=== PATIENT | female | born 1940 | race Caucasian/White ===

== ENCOUNTER → 2024-08-17 | Outpatient (CLI) | payer MEDICARE, BC, SELFPAY ==
--- NOTE | 2024-08-17 | XR_ITS ---
Examination: Hand, left 3 views Technique: Hand AP, oblique, lateral 3 views Date and time of exam: August 17, 2024 1312 hours INDICATIONS: Patient fell August 01, 2024 with injury to the hand, hand pain FINDINGS: Acute impacted angulated fracture distal fifth metacarpal Severe osteopenia Advanced osteoarthritis first carpometacarpal joint IMPRESSION: Acute impacted angulated fracture distal fifth metacarpal
== END | disposition home or self-care (01) ==
PROVIDERS: PCP Internal Medicine; Referring Provider Internal Medicine; Visit Provider Internal Medicine
DX: S62.397A Other fracture of fifth metacarpal bone, left hand, initial encounter for closed fracture (principal); W19.XXXA Unspecified fall, initial encounter
CPT/HCPCS: 73130

== ENCOUNTER 2024-12-20 20:03 | Emergency (ER) | payer MEDICARE, BC, SELFPAY ==
[2024-12-20 20:05] VITALS: BMI 24.7
--- NOTE | 2024-12-20 20:08 | XR_ITS ---
Examination: Shoulder,right, 3 views Technique: Shoulder AP internal rotation, AP external rotation, Y view shoulder, 3 views Exam date and time :December 20, 2024, 2029 hours INDICATIONS: Patient fell today with injured the shoulder, shoulder pain. FINDINGS: No shoulder fracture or dislocation Ossified joint body overlies the scapula No significant separation IMPRESSION: No shoulder fracture or dislocation
[2024-12-20 20:55] VITALS: BP 179/84; PULSE 72; RESP 18; TEMP 36.9; O2SAT 95
--- NOTE | 2024-12-20 21:15 | PD.EDFALL ---
ED Fall Injury RME/HPI General Chief Complaint: Fall Stated Complaint: FELL, RIGHT SHOULDER INJURY Time Seen by Provider: 12/20/24 20:55 Arrival date/time: 12/20/24 20:03 RME / HPI RME / HPI Narrative: 84-year-old female presents to the ED with a complaint of right shoulder pain and multiple abrasions to her right upper extremity and right lower extremity secondary to a ground-level fall. Patient states she was working in her garden when she tripped and fell landing in a single palm bluish. The palm caused multiple puncture wounds and abrasions to her right upper extremity and right lower extremity. She denies striking her head or having any loss of consciousness. She denies any neck or back pain. She denies landing on her right shoulder, instead stating she landed on her buttocks. She denies any numbness or tingling to her extremities. Her last tetanus was in January 2022. Related Data Home Medications ?Medication ?Instructions ?Recorded ?Confirmed aspirin 81 mg chewable tablet 81 mg PO QDAY 08/02/19 01/27/22 atorvastatin 10 mg tablet 10 mg PO MWF 08/02/19 01/27/22 cholecalciferol (vitamin D3) 25 1,000 unit PO BID 08/02/19 01/27/22 mcg (1,000 unit) tablet (Vitamin D3) omeprazole 20 mg tablet,delayed 20 mg PO QDAY 08/02/19 01/27/22 release paroxetine HCl 20 mg tablet 20 mg PO QDAY 08/02/19 01/27/22 raloxifene 60 mg tablet 60 mg PO QDAY 08/02/19 01/27/22 Allergies Allergy/AdvReac Type Severity Reaction Status Date / Time levofloxacin Allergy Severe pain Verified 09/26/20 11:23 Review of Systems Review of Systems Systems Reviewed: All systems reviewed, normal except as documented Past Medical History Past Medical History NEUROLOGIC: Negative Neurological Disorders or Seizures CARDIAC: Positive Cardiac Disorders and Hypercholesterolemia; Negative Congestive Heart Failure RESPIRATORY: Negative Chronic Obstructive Pulmonary Disease (COPD) GASTROINTESTINAL: Positive Gastrointestinal Disorders and Gastroesophageal Reflux Disease GENITOURINARY: Negative Genitourinary Disorders or Renal Disease REPRODUCTIVE: Negative Previous Pregnancies MUSCULOSKELETAL: Positive Musculoskeletal Disorders and Osteoporosis ENDOCRINE: Negative Endocrine Disorders, Diabetes Mellitus Type 1 or Diabetes Mellitus Type 2 HEMATOLOGIC: Negative Blood Disorders PSYCHO/SOCIAL: Negative Depression or Anxiety OTHER HISTORY: Positive Anesthesia Reactions, Chicken Pox, Measles and Mumps; Negative Blood Transfusions or Cancer Family History FAMILY HISTORY: Positive Family Cancer (Father had lung cancer); Negative Family Psychiatric Problems, Family Respiratory Disorders, Family Cardiac Disorders or Family Gastrointestinal Problems Surgical History SURGICAL: Positive Joint Replacement, Open Reduction Internal Fixation and Hysterectomy Social History SMOKING STATUS: Never smoker ED Exam Narrative Physical exam: Alert and oriented 84-year-old female, no acute distress, sitting on exam table. Lungs are clear, regular rate and rhythm. There is no C-spine, T-spine, L-spine point tenderness or paraspinal tenderness. No sciatic notch tenderness. Mild tenderness to the distal clavicle/glenohumeral joint areas. Good range of motion of her right shoulder with mild pain with flexion but no pain with internal or external rotation or abduction/adduction. No tenderness to the trapezius area of the right shoulder. CMS intact distally. Equal press tool maker strength, equal pedal push/pull. Multiple right forearm smaller lacerations as well as right lower leg wound secondary to single pulm push forms. Bleeding is controlled. Course Quality Measures none Orders Category Date Time Status Cleanse Wound NEEDED Care 12/20/24 21:19 Active sling [Splint / Immobilizer] STAT Care 12/20/24 23:54 Active XR shoulder RT min 2V Stat Exams 12/20/24 20:08 Completed Vital Signs Vital signs: Vital Signs Temperature 98.5 F 12/20/24 20:55 Pulse Rate 72 12/20/24 20:55 Respiratory Rate 18 12/20/24 20:55 Blood Pressure 179/84 H 12/20/24 20:55 Pulse Oximetry (%) 95 12/20/24 20:55 Oxygen Delivery Method Room Air 12/20/24 20:55 Fall Patient data External records reviewed:: [facility] previous records Clinical information provided by:: patient Social determinants that could affect healthcare access:: none Evaluation data The following diagnostics were reviewed and interpreted by me:: radiology exam(s) Lab and/or radiology exams considered but not ordered:: N/A Interpretation Summary: No fracture or dislocation Medications / Prescriptions Medications or Prescriptions considered but not ordered:: N/A Consultations Consultation(s) initiated? (list below): No Diagnosis Fall Differential Diagnosis: dislocation of shoulder region Most likely diagnosis given after review of the tests above:: Right shoulder contusion, multiple abrasions Admission Indicated Admission indicated?: not indicated Explain why admission is indicated or not indicated:: Patient is stable for discharge Admission Request Was there a request for admission?: No Disposition Plan Disposition Plan: Discharge Discharge Attestation Discharge Attestation: The patient and all family members were given an opportunity to ask questions and understood the discharge instructions. Discharge instructions specifically effects, indications for sooner follow up or return to the emergency department, and the expected course of current diagnosis. Patient condition: Stable Discharge Plan Plan Patient Disposition: HOME (Self Care) Discharge Disposition comment: Stable and improved Prescriptions/Referrals Prescriptions/Med Rec: No Action atorvastatin 10 mg Tablet 10 mg PO MWF paroxetine HCl 20 mg Tablet 20 mg PO QDAY aspirin 81 mg Tablet,Chewable 81 mg PO QDAY raloxifene 60 mg Tablet 60 mg PO QDAY cholecalciferol (vitamin D3) [Vitamin D3] 25 mcg (1,000 unit) Tablet 1,000 unit PO BID omeprazole 20 mg Tablet,Delayed Release (Dr/Ec) 20 mg PO QDAY Referrals: Giesle Nelson MD [Primary Care Provider] - In 1 week Problem List Clinical Impression: Contusion of right shoulder, Abrasions of multiple sites Patient/Caregiver Discharge Instructions Education Materials: ED Abrasions, ED Contusion, Upper Extremity Additional Instructions: Follow-up with your primary care physician in 24 to 48 hours. Return to the ED for any new or worsening symptoms. Print Language: Swedish Stand Alone Forms: Ronit Award Info., Patient Portal Info Letter PA/COLLEGE TEACHER Supervising Physician PA/COLLEGE TEACHER Supervising Physician: Dr. Porter
== END 2024-12-21 00:08 | disposition home or self-care (01) ==
PROVIDERS: Emergency Provider Emergency Medicine; PCP Internal Medicine
DX: S40.011A Contusion of right shoulder, initial encounter (principal); W01.0XXA Fall on same level from slipping, tripping and stumbling without subsequent striking against object, initial encounter
CPT/HCPCS: 73030; 99283; A4565

== ENCOUNTER 2025-05-01 14:32 | Emergency (ER) | payer MEDICARE, BC, SELFPAY ==
--- NOTE | 2025-05-01 15:29 | PD.EDADULT ---
ED General RME/HPI General Chief complaint: Fall Stated complaint: FALL ON TAILBONE & HIT BACK OF HEAD FRI Time Seen by Provider: 05/01/25 15:29 Arrival date/time: 05/01/25 14:32 RME / HPI RME / HPI narrative: Darshan is a 85 y/o female with PMHx of hypertension, hyperlipidemia, osteoporosis (not on any medicines) who comes in for an evaluation after a fall during dancing on Friday, with associated headache and lumbar/tailbone pain, rated 7 out of 10, landed on her head and tailbone with no associated syncope. Patient reports that she was dancing and had the fall but did not start to come to the emergency room mediately. She said that she did some errands on Friday and she took a Motrin and then had a nap and was able to get through the day. Today after going to jewish, her headache and symptoms have not resolved still rated 7 out of 10 and she decided to come get evaluated in the ED. Does endorse some nausea at the time, however did not vomit. He does not take any blood thinners. Does not have a machine tender. She takes a statin, paroxetine, omeprazole and lisinopril 10 mg. She has a history of falls. She is able to walk on her home without a cane, she still drives and does all her adult daily living activities. She is . She lives alone. No other complaints at this time. Related Data Home Medications ?Medication ?Instructions ?Recorded ?Confirmed aspirin 81 mg chewable tablet 81 mg PO QDAY 08/02/19 01/27/22 atorvastatin 10 mg tablet 10 mg PO MWF 08/02/19 01/27/22 cholecalciferol (vitamin D3) 25 1,000 unit PO BID 08/02/19 01/27/22 mcg (1,000 unit) tablet (Vitamin D3) omeprazole 20 mg tablet,delayed 20 mg PO QDAY 08/02/19 01/27/22 release paroxetine HCl 20 mg tablet 20 mg PO QDAY 08/02/19 01/27/22 raloxifene 60 mg tablet 60 mg PO QDAY 08/02/19 01/27/22 Previous Rx's ?Medication ?Instructions ?Recorded lisinopril 5 mg tablet 5 mg PO QDAY #30 tabs 05/01/25 naproxen 250 mg tablet 250 mg PO BID PRN pain #10 tabs 05/01/25 Allergies Allergy/AdvReac Type Severity Reaction Status Date / Time levofloxacin Allergy Severe pain Verified 05/01/25 14:37 Review of Systems Review of Systems Narrative Review of Systems: 12 point ROS reviewed and is otherwise negative unless stated directly in the HPI ED Exam Narrative Physical exam: General: AAOx3, NAD, well functioning elderly woman HEENT: Moist mucous membranes, conjunctiva clear, EOMI, PERRLA, Cardiovascular: S1, S2, radial pulses +2 bilat, RRR Pulmonary: CTAB bilat no cough, no wheezing GI: No tenderness to light or deep palpitation, no guarding, rigidity, rebound tenderness or distension MSK: TTP to medial sacrum, slight tenderness toward L5 vertebral body, no ecchymosis visualized Extremities: No presence of trace or pitting edema in lower extremities bilaterally, dorsalis pedis pulses +2 bilaterally Neuro: AAOx3, no focal motor or sensory deficits in the UE or LE bilat Psych: Good judgement, thought and behavior Course Quality Measures none Orders Category Date Time Status Insert IV NOW Care 05/01/25 17:[address] head/brain wo con Stat Exams 05/01/25 15:57 Completed XR hip BI w pelvis 2V Stat Exams 05/01/25 15:57 Completed XR lumbar spine 1V Stat Exams 05/01/25 15:57 Completed XR lumbar spine 1V Stat Exams 05/01/25 18:19 Completed XR sacrum coccyx min 2V Stat Exams 05/01/25 18:26 Completed Acetaminophen Tab [Tylenol Tab] Med 05/01/25 15:57 Discontinued 650 mg PO X1 ONE Labetalol IV [Trandate IV] Med 05/01/25 17:05 Discontinued 15 mg IVP X1 ONE Lidocaine 5% Patch Med 05/01/25 16:15 Discontinued 1 patch TOP X1 ONE Metoclopramide [Reglan] Med 05/01/25 16:17 Discontinued 10 mg PO X1 ONE Ondansetron Odt [Zofran Odt] Med 05/01/25 16:00 Discontinued 4 mg PO X1 ONE Prochlorperazine Inj [Compazine Inj] Med 05/01/25 17:05 Discontinued 5 mg IV X1 ONE Vital Signs Vital signs: Vital Signs Temperature 98.1 F 05/01/25 15:53 Pulse Rate 73 05/01/25 15:53 Respiratory Rate 18 05/01/25 15:53 Blood Pressure 179/96 H 05/01/25 15:53 Pulse Oximetry (%) 95 05/01/25 15:53 Oxygen Delivery Method Room Air 05/01/25 15:53 Discharge Plan Plan Patient Disposition: HOME (Self Care) Discharge Disposition comment: Stable Prescriptions/Referrals Prescriptions/Med Rec: New naproxen 250 mg tablet 250 mg PO BID PRN (Reason: pain) Qty: 10 0RF Rx Instructions: With food lisinopril 5 mg tablet 5 mg PO QDAY Qty: 30 0RF Rx Instructions: Begin 5 mg nightly if BP greater than 160/90. No Action atorvastatin 10 mg Tablet 10 mg PO MWF paroxetine HCl 20 mg Tablet 20 mg PO QDAY aspirin 81 mg Tablet,Chewable 81 mg PO QDAY raloxifene 60 mg Tablet 60 mg PO QDAY cholecalciferol (vitamin D3) [Vitamin D3] 25 mcg (1,000 unit) Tablet 1,000 unit PO BID omeprazole 20 mg Tablet,Delayed Release (Dr/Ec) 20 mg PO QDAY Referrals: Gisele Nelson MD [Primary Care Provider, Nephrology] - In 1 week Problem List Clinical Impression: Contusion of head, Closed sacral fracture Impression comment: Head contusion/sacral fracture Patient/Caregiver Discharge Instructions Discharge Activity: activity as tolerated Education Materials: ED Coccyx or Sacrum Contusion, ED Head Injury (Adult) Additional Instructions: Medication as directed. Use doughnut when sitting. Increase activity as tolerated. Follow-up with primary care doctor as needed. Return if worsening. Print Language: Belarusian Stand Alone Forms: Ronit Award Info., Patient Portal Info Letter MDM Narrative MDM hospital course (for use when minimal MDM required): 1600: Reglan, Tylenol 650 mg by mouth, plain films lumbar, hip and pelvis, head CT. 1705: Head CT unremarkable, will order labetalol 50 mg IV, and Phenergan 5 mg IM. Pending plain films of lumbar and hip and pelvis 1800: Case discussed and passed down to ED Provider, Dr. Vaughn Medication Administration(s) Medication Administration History Discontinued Medications Acetaminophen (Acetaminophen 325 Mg Tablet) 650 mg PO X1 ONE Stop: 05/01/25 15:58 Last Admin: 05/01/25 16:37 Dose: 650 mg Documented By: BD Labetalol HCl (Labetalol Inj 5 Mg/Ml Vial 20 Ml) 15 mg IVP X1 ONE Stop: 05/01/25 17:06 Last Admin: 05/01/25 17:24 Dose: 15 mg Documented By: BD Lidocaine (Lidocaine 5% 1 Patch) 1 patch TOP X1 ONE Stop: 05/01/25 16:16 Last Admin: 05/01/25 16:38 Dose: 1 patch Documented By: BD Metoclopramide HCl (Metoclopramide 5 Mg Tablet) 10 mg PO X1 ONE Stop: 05/01/25 16:18 Last Admin: 05/01/25 16:37 Dose: 10 mg Documented By: BD Ondansetron HCl (Ondansetron Odt 4 Mg Tabrap) 4 mg PO X1 ONE; Protocol Stop: 05/01/25 16:01 Last Admin: 05/01/25 16:36 Dose: Not Given Documented By: BD Non-Admin Reason: Cancelled by Provider Prochlorperazine Edisylate (Prochlorperazine Inj 5 Mg/Ml Vial 2 Ml) 5 mg IV X1 ONE; Protocol Stop: 05/01/25 17:06 Last Admin: 05/01/25 17:24 Dose: 5 mg Documented By: BD Diagnosis Diagnoses ruled out and/or further discussions: Intracranial bleed, fracture, contusion, back spasm, muscle sprain
[2025-05-01 15:53] VITALS: BP 179/96; PULSE 73; RESP 18; TEMP 36.7; O2SAT 95
--- NOTE | 2025-05-01 15:57 | XR_ITS ---
Examination: CT brain head without contrast. 2-D sagittal coronal reconstructions Date and time of exam: May 01, 2025, 1623 hours INDICATIONS: Patient fell 3 days ago with injury to the head, persistent headache CTDI: vol (mGy): 44.5 DLP: (mGycm): 867 Technique: Multiple CT axial sections of the brain have been obtained, 5 mm slice thickness. Contrast has not been administered. 2-D sagittal, coronal reconstructions have been obtained Low dose protocols were performed. One or more of the following dose reduction techniques were used; automated exposure control, adjustment of the mA and/or KV according to patient size, use of iterative reconstruction technique. Findings: No significant ventricular enlargement. Intra-axial or extra-axial hemorrhage density is not seen. No mass effect or midline shift Basal cisterns are not remarkable. Fourth ventricle is midline. Cranial vault intact. Impression: Negative for acute hemorrhage, mass effect or midline shift
--- NOTE | 2025-05-01 15:57 | XR_ITS ---
Examination: Bilateral hips, AP pelvis, 5 views Technique: AP, lateral views both hips, AP pelvis, 5 views Exam date and time: May 01, 2025, 1636 hours INDICATIONS: Patient fell today with bilateral hip pain FINDINGS: Total left hip arthroplasty. Satisfactory alignment. No right hip fracture or dislocation No acute pelvic fracture is depicted IMPRESSION: No acute hip or pelvic fracture If pain persists, recommend repeat AP pelvis in 1 to 2 days
--- NOTE | 2025-05-01 15:57 | XR_ITS ---
EXAMINATION: AP lumbar spine single view TECHNIQUE: AP supine lumbar spine single view Date and time: May 01, 2025, 1636 hours INDICATIONS: Patient fell today with injury to the lower back, lower back pain. FINDINGS: Prominent osteopenia No definite vertebral body fracture. Total left hip arthroplasty partially visualized IMPRESSION: Consider lateral lumbar spine follow-up to best assess for vertebral body fracture
[2025-05-01] MEDS: METOCLOPRAMIDE 5 MG TABLET 10 MG PO (16:37)
[2025-05-01] MEDS: ACETAMINOPHEN 325 MG TABLET 650 MG PO (16:37)
[2025-05-01] MEDS: LIDOCAINE 5% 1 PATCH TOP (16:38)
[2025-05-01 17:24] VITALS: BP 207/108; PULSE 65
[2025-05-01] MEDS: PROCHLORPERAZINE INJ 5 MG/ML VIAL 2 ML IV (17:24)
[2025-05-01] MEDS: LABETALOL INJ 5 MG/ML VIAL 20 ML 15 MG IVP (17:24)
--- NOTE | 2025-05-01 18:03 | PD.EDADDENDU ---
Emergency Room Addendum Addendum Narrative: 1800: Care assumed from Dr. Saba, attending Dr. Tavares, the previous shift emergency physician. Past medical, surgical, social and family history reviewed. Vitals and home medications reviewed. Results and treatment plan discussed. I will assume the care of the patient at this time and will follow the patient. Please refer to the emergency department record for history and examination from initial visit. 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 No radiculopathy, visual disturbance, or disequilibrium. Patient noted to be moderately hypertensive on arrival. Patient underwent CT head, which was unremarkable. Lumbar series/pelvic x-rays pending. If unremarkable, will discharge home. Will increase blood pressure control by asking patient to monitor blood pressure at home and if >160/90, will add Lisinopril 5mg. Overall clinical presentation is not consistent with concussion, will treat for head contusion and recommend ice compresses, prescribe Tylenol with Codeine, and anticipate close follow-up. RADIOLOGY RESULTS: [facility] Signed Patient: PHU GOMEZ [facility]. Record#: [id number] Birthdate: 1940 Age/Sex: 85 / F Location: [facility] Attending Dr: Ordering Physician: Eli Saba MD Date of Service: 05/01/25 Procedure(s): XR lumbar spine 1V Accession Number(s): [id number] cc: Eli Saba MD; Vicente Arreaga MD; Gisele Nelson MD~ EXAMINATION: AP lumbar spine single view TECHNIQUE: AP supine lumbar spine single view Date and time: May 01, 2025, 1636 hours INDICATIONS: Patient fell today with injury to the lower back, lower back pain. FINDINGS: Prominent osteopenia No definite vertebral body fracture. Total left hip arthroplasty partially visualized IMPRESSION: Consider lateral lumbar spine follow-up to best assess for vertebral body fracture Dictated By: Vicente Arreaga MD Signed By: <Electronically signed by Vicente Arreaga MD in OV> 05/01/25 1802 [facility] Report Signed Patient: PHU GOMEZ [facility]. Record#: [id number] Birthdate: 1940 Age/Sex: 85 / F Location: [facility] Attending Dr: Ordering Physician: Eli Saba MD Date of Service: 05/01/25 Procedure(s): XR hip BI w pelvis 2V Accession Number(s): [id number] cc: Eli Saba MD; Vicente Arreaga MD; Gisele Nelson MD~ Examination: Bilateral hips, AP pelvis, 5 views Technique: AP, lateral views both hips, AP pelvis, 5 views Exam date and time: May 01, 2025, 1636 hours INDICATIONS: Patient fell today with bilateral hip pain FINDINGS: Total left hip arthroplasty. Satisfactory alignment. No right hip fracture or dislocation No acute pelvic fracture is depicted IMPRESSION: No acute hip or pelvic fracture If pain persists, recommend repeat AP pelvis in 1 to 2 days Dictated By: Vicente Arreaga MD Signed By: <Electronically signed by Vicente Arreaga MD in OV> 05/01/25 1803 Sacrum and Coccyx x-ray shows minimally displaced fracture of the lower sacral segment, no sacral dislocation, demineralized, according to my interpretation. Lateral lumbar spine x-ray shows grade 1 spondylolisthesis of L4-L5, no compression fracture, degenerative changes at L5-S1, according to my interpretation.
--- NOTE | 2025-05-01 18:19 | XR_ITS ---
EXAMINATION: Lateral lumbar spine single view TECHNIQUE: Lateral lumbar spine single view Date and time: May 01, 2025, 1840 hours INDICATIONS: Injury to the lower back today, lower back pain. FINDINGS: Grade 1 anterolisthesis L4 and L5 Diffuse moderate to advanced lumbar degenerative disc disease most severe at L5-S1 No lumbar fracture Mild lumbar spondylosis IMPRESSION: No lumbar fracture
--- NOTE | 2025-05-01 18:26 | XR_ITS ---
EXAMINATION: Sacrum and coccyx 3 views TECHNIQUE: AP inclined AP lateral sacrum coccyx 3 views Date and time: May 01, 2025, 1837 hours INDICATIONS: Injury to the sacrum today, sacral pain. FINDINGS: Severe osteopenia Advanced degenerative disc disease L5-S1 Angulation involving the fifth sacral segment IMPRESSION: Suspicious for nondisplaced fracture involving the fifth sacral segment
[2025-05-01 18:28] VITALS: BP 167/78; PULSE 62; RESP 19; TEMP 37.1; O2SAT 95
[2025-05-01 19:38] VITALS: BP 179/84; PULSE 70; RESP 16; TEMP 36.8; O2SAT 98
== END 2025-05-01 19:46 | disposition home or self-care (01) ==
PROVIDERS: Emergency Provider Emergency Medicine; PCP Internal Medicine
DX: S32.10XA Unspecified fracture of sacrum, initial encounter for closed fracture (principal); S00.93XA Contusion of unspecified part of head, initial encounter; E78.5 Hyperlipidemia, unspecified; I10 Essential (primary) hypertension; Y93.41 Activity, dancing; W19.XXXA Unspecified fall, initial encounter
CPT/HCPCS: 70450; 72020; 72220; 73521; 96374; 99284; J0780; J3490; A9270; J1920

== ENCOUNTER → 2025-05-04 | Outpatient (CLI) | payer MEDICARE, BC, SELFPAY ==
--- NOTE | 2025-05-04 11:45 | XR_ITS ---
Examination: Screening digital mammography, bilateral Computer aided detection 3-D breast Tomosynthesis, bilateral Date and time of exam: 05/04/2025, 11:51 a.m. Comparisons: February 2020 through September 2022 Indications: Screening Technique: Nonmagnified MLO, CC views of the breasts to been obtained, reconstructed from 3-D Tomosynthesis images. R2 computer aided detection program utilized for evaluation of suspicious masses and/or abnormal calcifications. 3-D Tomosynthesis images obtained. Technologist: Findings: The breasts are heterogeneously dense, which may obscure small masses. No evidence of abnormal masses or suspicious calcifications. Impression: BI-RADS category 1: Negative findings (within normal) Recommend 1 year follow-up mammogram
== END | disposition home or self-care (01) ==
LOC: CDIM 11:36
PROVIDERS: Referring Provider Internal Medicine; Visit Provider Internal Medicine
DX: Z12.31 Encounter for screening mammogram for malignant neoplasm of breast (principal); R92.313 Mammographic fatty tissue density, bilateral breasts
CPT/HCPCS: 77063; 77067

== ENCOUNTER 2025-06-13 11:03 | Inpatient (IN) | payer MEDICARE, BC, SELFPAY ==
[2025-06-13] VITALS (12 sets, daily range): BP systolic 154–159; BP diastolic 82–92; PULSE 83–122; RESP 20–89; TEMP 37.3–38.8; O2SAT 91–95; BMI 24.5; BMI 25.7
--- NOTE | 2025-06-13 11:27 | PC.NURSE ---
sepsis alert called
--- NOTE | 2025-06-13 11:39 | EKG_ITS ---
[facility] Test Date: 2025-06-13 Pat Name: PHU GOMEZ Department: Room: - Gender: Female Supervisor Telephone Answering Service: : 1940 Requested By: Lottie Jha Order Number: [id number] Reading MD: Lottie Jha Measurements Intervals [place] Rate: 93 P: 53 NH: 161 QRS: -1 QRSD: 94 T: 25 QT: 315 QTc: 393 Interpretive Statements SINUS RHYTHM Compared to ECG 01/26/2022 21:18:09 No significant changes /store/S0/[id number]
--- NOTE | 2025-06-13 11:39 | PD.EDFEVER ---
ED Fever RME/HPI General Chief Complaint: Shortness of Breath/Dyspnea Stated Complaint: SOB, FEVER, LUNG PAIN, COUGH Time Seen by Provider: 06/13/25 11:32 Arrival date/time: 06/13/25 11:03 Limitations: no limitations RME / HPI RME / HPI Narrative: 85 year old female with history of hypertension, hyperlipidemia presents to the ED for evaluation of shortness of breath, cough, and fevers beginning 2 days ago. Accompanied by diffuse abdominal discomfort. Denies any chest pain, vomiting, change in bowel habits, or urinary symptoms. Last bowel movement was this morning and normal for her. Denies use of oxygen at home. No sick contacts. Related Data Home Medications ?Medication ?Instructions ?Recorded ?Confirmed atorvastatin 10 mg tablet 10 mg PO MWF 08/02/19 06/14/25 omeprazole 20 mg tablet,delayed 20 mg PO QDAY 08/02/19 06/14/25 release paroxetine HCl 20 mg tablet 20 mg PO QDAY 08/02/19 06/14/25 raloxifene 60 mg tablet 60 mg PO QDAY 08/02/19 06/14/25 Previous Rx's ?Medication ?Instructions ?Recorded lisinopril 5 mg tablet 5 mg PO QDAY #30 tabs 05/01/25 Allergies Allergy/AdvReac Type Severity Reaction Status Date / Time levofloxacin Allergy Severe pain Verified 06/13/25 11:07 Review of Systems Review of Systems Systems Reviewed: All systems reviewed, normal except as documented Past Medical History Past Medical History NEUROLOGIC: Positive Head Trauma CARDIAC: Positive Cardiac Disorders, Hypercholesterolemia and Hypertension GASTROINTESTINAL: Positive Gastrointestinal Disorders and Gastroesophageal Reflux Disease MUSCULOSKELETAL: Positive Musculoskeletal Disorders, Rheumatoid Arthritis, Osteoporosis, Carpal Tunnel Syndrome and Fractures ENT: Positive Deafness (bilateral) and Head Trauma PSYCHO/SOCIAL: Positive Depression and Anxiety OTHER HISTORY: Positive Hospitalization, Falls, Chicken Pox, Measles and Mumps Family History FAMILY HISTORY: Positive Family Cancer Surgical History SURGICAL: Positive Tonsillectomy, Joint Replacement, Open Reduction Internal Fixation and Hysterectomy Social History SMOKING STATUS: Never smoker Physical Exam General Limitations: no limitations General appearance: alert and other (acutely ill appearing, tachypneic ) Head Head exam: atraumatic Eye Eye exam: Present normal appearance, PERRL and EOMI ENT ENT exam: Present normal exam, normal oropharynx and mucous membranes moist Neck Neck exam: Present normal inspection, full ROM and trachea midline Chest Chest inspection: Present normal inspection and symmetric chest wall rise Respiratory Respiratory exam: Present other (coarse breath sounds) Cardiovascular Cardiovascular exam: Present regular rate, normal rhythm and normal heart sounds Abdominal Exam Abdominal exam: Present soft and normal bowel sounds Extremities Exam Extremities exam: Present normal inspection and full ROM Back Exam Back exam: Present normal inspection and full ROM Neurological Exam Neurological exam: Present alert, oriented X3 and CN II-XII intact Psychiatric Psychiatric exam: Present normal affect and normal mood Skin Skin exam: Present warm, dry, intact and normal color ED Exam General Limitations: Present no limitations General appearance: Present alert and other (acutely ill appearing, tachypneic ) Head Head exam: Present atraumatic Eye Eye exam: Present normal appearance, PERRL and EOMI ENT ENT exam: Present normal exam, normal oropharynx and mucous membranes moist Neck Neck exam: Present normal inspection, full ROM and trachea midline Chest Chest inspection: Present normal inspection and symmetric chest wall rise Respiratory Respiratory exam: Present other (coarse breath sounds) Cardiovascular Cardiovascular exam: Present regular rate, normal rhythm and normal heart sounds Abdominal Exam Abdominal exam: Present soft and normal bowel sounds Extremities Exam Extremities exam: Present normal inspection and full ROM Back Exam Back exam: Present normal inspection and full ROM Neurological Exam Neurological exam: Present alert, oriented X3 and CN II-XII intact Psychiatric Psychiatric exam: Present normal affect and normal mood Skin Skin exam: Present warm, dry, intact and normal color Course Quality Measures Current suspected stage: sepsis Possible source: pulmonary Blood cultures ordered: completed in ED Antibiotic ordered: Yes Pertinent labs: 06/13/25 11:36 Lactic Acid 1.5 mMol/L (0.4-2.0) Procalcitonin 1.89 H ng/ml (0.0-0.49) sepsis Orders Category Date Time Status Patient Condition Routine Admission 06/13/25 15:[address] in Observation Status Routine Admission 06/13/25 15:18 Active Bedside Blood Glucose NOW Care 06/13/25 11:39 Active Bedside COVID-19 Antigen Test NOW Care 06/13/25 11:39 Active Service Order Taker Q4H START 00 Care 06/13/25 11:39 Completed Insert IV NOW Care 06/13/25 11:39 Active Miscellaneous Nursing Order NOW Care 06/13/25 15:13 Active Notify provider NEEDED Care 06/13/25 15:18 Active Strict Intake and Output Routine Care 06/13/25 11:39 Ordered Diet Regular Diet 06/13/25 Dinner Active XR chest 1V SEPSIS PROTOCOL Stat Exams 06/13/25 11:39 Completed BNP [B-Type Natriuretic Peptide] Stat Lab 06/13/25 11:36 Completed Blood Culture (Lab) Stat Lab 06/13/25 11:30 Received CBC AM DRAW Lab 06/14/25 04:29 Completed CBC AM DRAW Lab 06/15/25 05:00 Ordered CBC AM DRAW Lab 06/16/25 05:00 Ordered CBC Stat Lab 06/13/25 11:36 Completed Comprehensive Metabolic Panel AM DRAW Lab 06/14/25 04:29 Completed Comprehensive Metabolic Panel AM DRAW Lab 06/15/25 05:00 Ordered Comprehensive Metabolic Panel AM DRAW Lab 06/16/25 05:00 Ordered Comprehensive Metabolic Panel Stat Lab 06/13/25 11:36 Completed Influenza A & B Rapid Panel Stat Lab 06/13/25 11:55 Completed Lactate (Lactic Acid) Stat Lab 06/13/25 11:36 Completed Magnesium AM DRAW Lab 06/14/25 04:29 Completed Magnesium AM DRAW Lab 06/15/25 05:00 Ordered Magnesium AM DRAW Lab 06/16/25 05:00 Ordered Partial Thromboplastin Time Stat Lab 06/13/25 11:36 Completed Phosphorous AM DRAW Lab 06/14/25 04:29 Completed Phosphorous AM DRAW Lab 06/15/25 05:00 Ordered Phosphorous AM DRAW Lab 06/16/25 05:00 Ordered Procalcitonin Stat Lab 06/13/25 11:36 Completed Prothrombin Time with INR Stat Lab 06/13/25 11:36 Completed Troponin I Stat Lab 06/13/25 11:36 Completed Urinalysis Stat Lab 06/13/25 15:02 Completed Urine Culture Stat Lab 06/13/25 15:02 Received Acetaminophen Tab [Tylenol Tab] Med 06/13/25 15:18 Active 650 mg PO Q6H PRN Acetaminophen Tab [Tylenol Tab] Med 06/13/25 12:11 Discontinued 650 mg PO X1 ONE Albuterol/Ipratr Rt Brittani [Duoneb Rt Brittani] Med 06/13/25 19:00 Discontinued 3 ml INH Q6HRRT Azithromycin Inj [Zithromax Inj] 500 mg Med 06/14/25 09:00 Active Sodium Chloride 0.9% 250 ml [Ns] 250 ml IV QDAY Azithromycin Inj [Zithromax Inj] 500 mg Med 06/13/25 12:30 Discontinued Sodium Chloride 0.9% 250 ml [Ns] 250 ml IV X1 Heparin Inj Med 06/13/25 21:00 Active 5,000 unit SC Q12HR Ondansetron Inj [Zofran Inj] Med 06/13/25 15:18 Active 4 mg IVP Q6H PRN POTASSIUM CHL 10% Liq 15 ML Med 06/13/25 15:23 Discontinued 40 meq PO X1 ONE Pantoprazole Inj [Protonix Inj] Med 06/14/25 09:00 Active 40 mg IVP QDAY Ringers Lactated 1000 ml [Lactated Ringers] 1,000 ml Med 06/13/25 13:42 Discontinued IV 999 mls/hr Ringers Lactated 500 ml [Lactated Ringers] 500 ml Med 06/13/25 11:57 Discontinued IV 500 mls/hr cefTRIAXone/D5w 1gm IV premix [Rocephin/D5w 1gm IV Med 06/14/25 09:00 Active premix] 1 gm in 50 ml IV QDAY cefTRIAXone/D5w 1gm IV premix [Rocephin/D5w 1gm IV Med 06/13/25 11:40 Discontinued premix] 1 gm in 50 ml IV STAT Code Status Routine Oth 06/13/25 15:18 Ordered EKG (RT) Stat RT 06/13/25 11:39 Draft Oxygen Delivery NOW RT 06/13/25 11:39 Active Vital Signs Vital signs: Vital Signs Temperature 101.8 F H 06/13/25 11:25 Pulse Rate 100 06/13/25 11:25 Respiratory Rate 24 H 06/13/25 11:25 Blood Pressure 154/82 H 06/13/25 11:25 Pulse Oximetry (%) 91 L 06/13/25 11:25 Oxygen Delivery Method Room Air 06/13/25 11:25 Pulse ox is 91% on room air which is low. Fever MDM Narrative MDM Narrative:: Aline Haines am scribing for and in the presence of Dr. Padgett. Patient is an 85-year-old female seen emerged from with concerns for shortness of breath and cough. Vital signs and exam as listed. Concern pneumonia viral syndrome CHF exacerbation among others. Patient presented tachycardic tachypneic and febrile meet SIRS criteria. Ordered fluids and antibiotics. Labs evidence of leukocytosis 12.2, no left shift, elevated procalcitonin, lactic acid normal, no significant acute metabolic disturbance. BNP 116, urinalysis positive leuk esterase however 7 RBCs 9 WBCs rare bacteria less likely urinary tract infection given patient without dysuria. Chest x-ray with pneumonia. EKG performed today at 1146 notable for sinus rhythm, normal intervals, nonspecific T wave changes, not a cardiac alert. Patient is requiring supplemental oxygen so we will admit to the hospitalist team. 1342: I spoke with hospitalist team B for admission. Total critical care time: Approximately?45?minutes Due to a high probability of clinically significant, life threatening deterioration, the patient required my highest level of preparedness to intervene emergently and I personally spent this critical care time directly and personally managing the patient. This critical care time included obtaining a history; examining the patient; pulse oximetry; ordering and review of studies; arranging urgent treatment with development of a management plan; evaluation of patient's response to treatment; frequent reassessment; and, discussions with other providers. This critical care time was performed to assess and manage the high probability of imminent, life-threatening deterioration that could result in multi-organ failure. It was exclusive of separately billable procedures and treating other patients and teaching time. Please see MDM section and the rest of the note for further information on patient assessment and treatment. Patient data External records reviewed:: [facility] [place] previous records (I reviewed ED visit on 05/01/2025 ) Clinical information provided by:: patient Social determinants that could affect healthcare access:: none Patient has the following chronic illnesses:: hypertension, hyperlipidemia How is presenting disease/condition affected by chronic disease/condition?: exacerbated by Evaluation data The following diagnostics were reviewed and interpreted by me:: lab results, radiology exam(s) and EKG tracing(s) (EKG @ 11:46, interpreted by me, normal sinus rhythm, rate 93, no STEMI. ) Lab and/or radiology exams considered but not ordered:: None Interpretation Summary: Ordering Physician: Lottie Padgett MD Date of Service: 06/13/25 Procedure(s): XR chest 1V SEPSIS PROTOCOL Accession Number(s): [id number] cc: Vicente Arreaga MD; Lottie Padgett MD~ EXAMINATION: AP chest single view TECHNIQUE: AP portable upright chest single view Date and time: June 13, 2025, 11:43 a.m. INDICATIONS: Sepsis alert FINDINGS: Left basilar pneumonia, retrocardiac Normal heart size Mild vascular congestion Reduced inspiratory effort Prominent osteopenia IMPRESSION: Left basilar pneumonia Dictated By: Vicente Arreaga MD Signed By: <Electronically signed by Vicente Arreaga MD in OV> 06/13/25 1201 Medications / Prescriptions Medications or Prescriptions considered but not ordered:: None Medication administrations:: Medication Administration History Acetaminophen (Acetaminophen 325 Mg Tablet) 650 mg PO Q6H PRN PRN Reason: Fever >100.4 or pain Stop: 07/13/25 15:17 Last Admin: 06/13/25 19:24 Dose: 650 mg Documented By: CHRISTIANO Albuterol/Ipratropium (Albuterol/Ipratropium (Duoneb) Rt Brittani 3 Ml Nebu) 3 ml INH Q6HRRT PRN PRN Reason: wheezing Stop: 07/13/25 18:59 Heparin Sodium (Porcine) (Heparin Sod Inj 5000 Unit/Ml Vial) 5,000 unit SC Q12HR MONTEZ Stop: 06/27/25 20:59 Last Admin: 06/13/25 20:26 Dose: 5,000 unit Documented By: CHRISTIANO Co-signed By: JDG Azithromycin 500 mg/ Sodium (Chloride) 250 mls @ 250 mls/hr IV QDAY MONTEZ Stop: 06/21/25 08:59 Ceftriaxone Sodium/Dextrose (Rocephin/D5w 1gm Iv Premix) 1 gm in 50 mls @ 100 mls/hr IV QDAY MONTEZ Stop: 06/21/25 08:59 Ondansetron HCl (Ondansetron Inj 2 Mg/Ml Inj 2 Ml) 4 mg IVP Q6H PRN; Protocol PRN Reason: NAUSEA OR VOMITING Stop: 07/13/25 15:17 Pantoprazole Sodium (Pantoprazole Inj 40 Mg Vial) 40 mg IVP QDAY MONTEZ Stop: 07/14/25 08:59 Sodium Chloride (Sodium Chloride Rt Brittani 0.9% 3 Ml Nebu) 3 ml INH PRN PRN PRN Reason: SOLN Stop: 07/13/25 16:33 Discontinued Medications Acetaminophen (Acetaminophen 325 Mg Tablet) 650 mg PO X1 ONE Stop: 06/13/25 12:12 Last Admin: 06/13/25 12:16 Dose: 650 mg Documented By: JACINDA Albuterol (Albuterol Rt 2.5 Mg/0.5 Ml Nebu) 2.5 mg INH X1 ONE Stop: 06/13/25 16:35 Albuterol/Ipratropium (Albuterol/Ipratropium (Duoneb) Rt Brittani 3 Ml Nebu) 3 ml INH Q6HRRT MONTEZ Stop: 07/13/25 18:59 Ceftriaxone Sodium/Dextrose (Rocephin/D5w 1gm Iv Premix) 1 gm in 50 mls @ 100 mls/hr IV STAT STA Stop: 06/13/25 12:09 Last Infusion: 06/13/25 12:31 Dose: Infused Documented By: Admin: 06/13/25 12:02 Dose: 100 mls/hr Documented By: JACINDA Lactated Ringer's (Lactated Ringers) 500 mls @ 500 mls/hr IV .Q1H ONE Stop: 06/13/25 12:56 Last Infusion: 06/13/25 13:48 Dose: Infused Documented By: Admin: 06/13/25 12:29 Dose: 500 mls/hr Documented By: JACINDA Comments: WE ONLY HAVE 1000ML LR BAGS, I SET THE PUMP TO ONLY INFUSE 500ML Azithromycin 500 mg/ Sodium (Chloride) 250 mls @ 250 mls/hr IV X1 ONE Stop: 06/13/25 13:29 Last Infusion: 06/13/25 13:48 Dose: Infused Documented By: Admin: 06/13/25 12:28 Dose: 250 mls/hr Documented By: JACINDA Lactated Ringer's (Lactated Ringers) 1,000 mls @ 999 mls/hr IV .Q1H1M ONE Stop: 06/13/25 14:42 Last Admin: 06/13/25 14:14 Dose: 999 mls/hr Documented By: JACINDA Potassium Chloride (Kcl Ivpb) 10 meq in 100 mls @ 100 mls/hr IV Q1H MONTEZ Stop: 06/13/25 18:51 Last Admin: 06/13/25 17:16 Dose: Not Given Documented By: DARRIUS Non-Admin Reason: Discontinued Nifedipine (Nifedipine Xl 30 Mg Tabcr) 30 mg PO X1 ONE Stop: 06/13/25 16:26 Last Admin: 06/13/25 17:05 Dose: 30 mg Documented By: DARRIUS Potassium Chloride (Potassium Chloride 10% 20 Meq/15 Ml Udc) 40 meq PO X1 ONE Stop: 06/13/25 15:24 Last Admin: 06/13/25 15:45 Dose: Not Given Documented By: JACINDA Non-Admin Reason: Unable to Swallow Potassium Chloride (Potassium Chloride 20 Meq Tabcr) 40 meq PO X1 ONE Stop: 06/13/25 16:01 Last Admin: 06/13/25 17:05 Dose: 40 meq Documented By: DARRIUS See above Consultations Consultation(s) initiated? (list below): Yes Consultation #1 (Physician, Specialty, Details): See MDM Diagnosis Fever Differential Diagnosis: cellulitis, fever of unknown origin, community acquired pneumonia, viral infection, sepsis and influenza Most likely diagnosis given after review of the tests above:: Acute hypoxic respiratory failure Cough Pneumonia SIRS Admission Indicated Admission indicated?: indicated Admission Request Was there a request for admission?: Yes Admission Attestation Admission request attestation: Discussed case with Hospitalist service regarding admission. Discussed patients ED course, exam findings, labs, and radiology results. The Hospitalist [agrees] to accept the patient for admission. Disposition Plan Disposition Plan: Admit Discharge Plan Plan Patient Disposition: Admit Acute Care w/in Hospital Problem List Clinical Impression: Acute hypoxic respiratory failure, Cough, SIRS (systemic inflammatory response syndrome), Pneumonia
[2025-06-13 11:51] LABS: Lactate (Lactic Acid) 1.5 mMol/L (0.4-2.0)
[2025-06-13 11:55] LABS: Basophils # (Auto) 0.0 Thou/mm3 (0.0-0.2); Basophils % (Auto) 0 % (0-2.5); Eosinophils # (Auto) 0.1 Thou/mm3 (0.0-0.5); Eosinophils % (Auto) 1 % (0-10); Hematocrit 38.4 % (36.0-46.0); Hemoglobin 12.9 g/dL (12.0-16.0); Immature Granulocytes Auto 1.09 Thou/mm3 (0.00-0.00); Lymphocytes # (Auto) 1.8 Thou/mm3 (1.0-4.8); Lymphocytes % (Auto) 11 % (10-50); Mean Corpuscular HGB Conc 33.6 g/dl (31.0-37.0); Mean Corpuscular Hemoglobin 31.4 pg (25.0-35.0); Mean Corpuscular Volume 93 fL (80-100); Monocytes # (Auto) 2.0 Thou/mm3 (0.0-0.8); Monocytes % (Auto) 12 % (0-12); Neutrophils # (Auto) 11.8 Thou/mm3 (1.8-7.7); Neutrophils % (Auto) 70 % (37-80); Nucleated Red Blood Cell # 0.00 Thou/mm3 (0.00-0.00); Nucleated Red Blood Cell % 0 /100 WBC (0); Platelet Count 329 Thou/mm3 (140-440); RDW Standard Deviation 45.2 fL (36.4-46.3); Red Blood Count 4.11 Miln/mm3 (4.00-5.20); White Blood Count 16.8 Thou/mm3 (3.6-11.0)
[2025-06-13] MEDS: cefTRIAXone/D5w 1gm IV premix 1 GM/50 ML BAG IV (12:02)
[2025-06-13 12:09] LABS: INR 1.0 (0.9-1.3); Partial Thromboplastin Time 29.1 Seconds (22.0-36.0); Prothrombin Time 10.7 Seconds (9.0-12.2)
[2025-06-13] MEDS: ACETAMINOPHEN 325 MG TABLET 650 MG PO ×2 (12:16→19:24)
[2025-06-13 12:20] LABS: Alanine Aminotransferase 28 U/L (10-49); Albumin, Serum 4.6 gm/dL (3.4-4.8); Albumin/Globulin Ratio 1.8 (1.2-2.2); Alkaline Phosphatase 127 U/L (46-116); Anion Gap 13 (7-16); Aspartate Amino Transferase 41 U/L (0-34); BUN/Creatinine Ratio 11 Ratio (12-20); Bilirubin,Total 0.6 mg/dL (0.3-1.2); Blood Urea Nitrogen 8 mg/dL (9-23); Calcium 9.8 mg/dL (8.3-10.6); Calcium (Corrected) 9.8 mg/dL (8.5-10.1); Carbon Dioxide 26.3 mMol/L (20.0-31.0); Chloride 98 mMol/L (98-107); Creatinine (Component) 0.7 mg/dL (0.6-1.3); Estimated Creatinine Clearance 47.6 mL/min (>60); Globulin 2.6 gm/dL (2.3-3.5); Glucose 126 mg/dL (74-106); Osmolality,Calculated 274 (275-295); Potassium 3.2 mMol/L (3.4-5.1); Procalcitonin 1.89 ng/ml (0.0-0.49); Sodium 137 mMol/L (136-145); Total Protein 7.2 gm/dL (5.7-8.2); Troponin I < 0.020 ng/mL (0.0-0.045); eGFR > 60 See Note
[2025-06-13] MEDS: AZITHROMYCIN INJ 500 MG in SODIUM CHLORIDE 0.9% 250 ML 250 ML 250 MG IV (12:28)
[2025-06-13] MEDS: RINGERS LACTATED 500 ML 500 ML IV (12:29)
[2025-06-13 13:10] LABS: Influenza A Ag Negative; Influenza B Ag Negative
[2025-06-13 13:19] LABS: B-Type Natriuretic Peptide 116 pg/mL (0-100)
--- NOTE | 2025-06-13 13:49 | ESHP_ITS ---
<Statement entered by Moreno Marrero MD - 06/13/25 18:46> 85-year-old female with significant past medical history of hypertension with recent travel to [facility] presented to the hospital with chief complaints of shortness of breath, fever and abdominal discomfort. Noted to have temperature of 101.8 ?F with heart rate of 120 to 130 bpm. Chest x-ray showed left basilar infiltrates. Labs showed WBC 16.8, procalcitonin 1.89, lactate 1.5, BNP 116. Patient is admitted in the hospital for observation for community-acquired pneumonia and is started on ceftriaxone and azithromycin. Repleted with 30 mill equivalents of oral potassium in view of hypokalemia, 3.2 I have personally seen and examined the patient, agree with residents assessment and plan Patient plan of care was discussed with the attending physician, Dr. Vasiliy Marrero, PGY2 Documentation for date of: 06/13/25 HPI History of Present Illness Chief complaint: Shortness of breath, cough, and fever. History of present illness: 85-year-old female with history of HTN and HLD presents with 2 days of worsening shortness of breath, non-productive cough, subjective fevers, chills, and diffuse abdominal discomfort. She recently returned from a long international trip and cruise to [facility]. She reports being evaluated on the cruise ship for dehydration and received IV fluids. After arriving home on Friday, she felt extremely fatigued and went straight to bed. Since then, she has had intermittent fevers with drenching sweats, worsening cough, and progressive dyspnea. Family reports an episode of severe coughing. Patient states she ?feels worn out? and ?just getting worse since the trip.? Reports chronic sinus issues at baseline but states this illness is worse. Mentions taking care of her for many years and taking paroxetine for anxiety. No chest pain, vomiting, diarrhea, urinary symptoms, syncope, or sick contacts. Last bowel movement was normal today. In ED she was febrile to 101.8?F, tachycardic to 120?130s, tachypneic at 24, and hypoxic to 91% on room air. Chest X-ray showed left basilar pneumonia. Labs notable for WBC 16.8, procalcitonin 1.89, K 3.2 (repleted 40 mEq), BNP 116, troponin negative, lactic acid 1.5, UA negative. On interview, Review of Systems: * General: +fever, +chills, +fatigue * Respiratory: +cough, +shortness of breath, no wheezing * Cardiac: no chest pain, no palpitations currently * GI: mild abdominal discomfort, no N/V/D * : denies dysuria, hematuria * Neuro: no dizziness, no syncope * Extremities: no edema All other systems reviewed and negative unless above. Past Medical History: * Hypertension * Hyperlipidemia Medications: * Lisinopril 10 mg daily * Omeprazole 20 mg daily * Paroxetine 20 mg daily * Atorvastatin 10 mg three times per week Allergies: No known drug allergies. Social History: * Lives independently * smoking history, quit decades ago * Drinks alcohol rarely * No illicit drugs * Returned from international travel cruise within the last 5?7 days Family History: Non-contributory. Exam Vital Signs Temp Pulse Resp BP Pulse Ox O2 Del Method O2 Flow Rate 99.8 F 94 20 154/82 H 93 L Room Air 2 06/13/25 13:27 06/13/25 11:44 06/13/25 11:44 06/13/25 11:25 06/13/25 11:44 06/13/25 11:25 06/13/25 11:44 Narrative Exam General: Appears tired, mild respiratory distress improving. HEENT: Mucous membranes slightly dry. Neck: Supple, no JVD. Heart: Tachycardic but regular rhythm. No murmurs. Lungs: Diminished breath sounds at left base with crackles. + wheezes on left lung. Abdomen: Soft, mild diffuse tenderness, no guarding. Extremities: No edema. Pulses intact. Neuro: Alert, oriented x3, no focal deficits. Skin: Warm, dry. Results: Labs 06/13/25 11:36 06/13/25 11:36 Labs: Short CBC 06/13/25 Range/Units 11:36 WBC 16.8 H (3.6-11.0) Thou/mm3 Hgb 12.9 (12.0-16.0) g/dL Hct 38.4 (36.0-46.0) % Plt Count 329 (140-440) Thou/mm3 BMP 06/13/25 11:36 Sodium 137 Potassium 3.2 L Chloride 98 Carbon Dioxide 26.3 BUN 8 L Creatinine 0.7 Glucose 126 H Calcium 9.8 Cardiac Enzymes 06/13/25 Range/Units 11:36 Troponin I < 0.020 (0.0-0.045) ng/mL Liver Function 06/13/25 Range/Units 11:36 Total Bilirubin 0.6 (0.3-1.2) mg/dL AST 41 H (0-34) U/L ALT 28 (10-49) U/L Alkaline Phosphatase 127 H (46-116) U/L Albumin 4.6 (3.4-4.8) gm/dL Quality Measures Quality Measures sepsis Current suspected stage: ruled out Possible source: pulmonary Blood cultures ordered: completed in ED Antibiotic ordered: Yes Advance care planning discussed with:: patient Medications Home Medications and Allergies Home Medications ?Medication ?Instructions ?Recorded ?Confirmed ?Type aspirin 81 mg chewable tablet 81 mg PO QDAY 08/02/19 0 01/27/22 History atorvastatin 10 mg tablet 10 mg PO MWF 08/02/19 History cholecalciferol (vitamin D3) 25 1,000 unit PO BID 07/2101/27/22 History mcg (1,000 unit) tablet (Vitamin D3) omeprazole 20 mg tablet,delayed 20 mg PO QDAY 08/02/19 01/27/22 History release paroxetine HCl 20 mg tablet 20 mg PO QDAY 08/02/1905/11 History raloxifene 60 mg tablet 60 mg PO QDAY 08/02/1901/27 History Allergies Allergy/AdvReac Type Severity Reaction Status Date / Time levofloxacin Allergy Severe pain Verified 06/13/25 11:07 Visit Medications Azithromycin 500 mg/ Sodium (Chloride) 250 mls @ 250 mls/hr IV QDAY MONTEZ Stop: 06/20/25 12:16 Lactated Ringer's (Lactated Ringers) 1,000 mls @ 999 mls/hr IV .Q1H1M ONE Stop: 06/13/25 14:42 Discontinued Medications Acetaminophen (Acetaminophen 325 Mg Tablet) 650 mg PO X1 ONE Stop: 06/13/25 12:12 Last Admin: 06/13/25 12:16 Dose: 650 mg Ceftriaxone Sodium/Dextrose (Rocephin/D5w 1gm Iv Premix) 1 gm in 50 mls @ 100 mls/hr IV STAT STA Stop: 06/13/25 12:09 Last Infusion: 06/13/25 12:31 Dose: Infused Lactated Ringer's (Lactated Ringers) 500 mls @ 500 mls/hr IV .Q1H ONE Stop: 06/13/25 12:56 Last Infusion: 06/13/25 13:48 Dose: Infused Azithromycin 500 mg/ Sodium (Chloride) 250 mls @ 250 mls/hr IV X1 ONE Stop: 06/13/25 13:29 Last Infusion: 06/13/25 13:48 Dose: Infused Assessment & Plan Plan 85-year-old female with a history of hypertension and hyperlipidemia presenting with acute hypoxic respiratory failure due to left basilar pneumonia, mild hypokalemia, and tachycardia, requiring inpatient observation, IV antibiotics, and supportive care. #Left Basilar Pneumonia, suspected community-acquired, possibly travel-related #Leukocytosis patient presents with fever, cough, dyspnea CXR: left basilar infiltrate Initial SpO2 91% on room air -> improved to 95% WBC 16.8, procal 1.89 Recent cruise and long flight, possible risk for atypicals. Plan: * Start ceftriaxone + azithromycin (06/13- ) * Start Duoneb Q6H as needed for wheezing. * Blood cultures pending * Sputum culture if she produces * Trend WBC * Consider viral panel * Incentive spirometry * Maintain O2 > 92% #Hypokalemia (K 3.2) Plan: * Already repleted 40 mEq PO * Repeat BMP in AM #Tachycardia, sinus Likely fever, dehydration and pneumonia-related. Plan: * Treat infection * IV fluids #Hypertension / HLD Home meds: lisinopril 10 mg, paroxetine 20 mg, omeprazole 20 mg, atorvastatin 10 mg 3x/week Plan: * Continue home meds once med recs are back Health Maintenance: Disposition: Inpatient admission for acute hypoxic resp failure Feeding: Regular diet Thromboprophylaxis: Heparin SQ Q12H GI Prophylaxis: Pantoprazole 40 mg IV daily. Code Status: DNR. ----- Plan discussed with attending physician Dr. Amanda and senior resident Dr. Elida Olivas MD PGY-1 Internal Medicine Attending Provider Attestation/Addendum I or my resident physicians have discussed care with the ED physician and I have made the decision to admit. I have discussed and was present for the essential components of the history, physical examination, diagnosis, and treatment plan with the resident. I agree with the patient's care as documented by the resident and amended herein by me. Kareem Amanda DO. Although this document has been carefully reviewed, there may still be some phonetic and other typographical errors. These errors are purely grammatical due to imperfections in the software program and should not be construed in any way to compromise the substance of the patient's medical care during this visit. Patient seen and evaluated in the ED. 85-year-old female, with significant past medical history of hypertension, anxiety, hyperlipidemia and GERD, presented with 2 days worsening shortness of breath, nonproductive cough and subjective fevers. Patient subsequently admitted for pneumonia. In the ED, BP 150/82, respiratory rate 24, temperature 101.8, O2 saturation 91% on room air. Patient was subsequently placed on nasal cannula 2 L SpO2 94%. Significant labs included WBC of 16.8, potassium 3.2 and a procalcitonin of 1.89. UA was positive significant for WBC of 9 and a and positive leuk esterase. Chest x-ray significant for a left basilar pneumonia. Patient subsequently admitted to [facility] under observation, she was placed on azithromycin and ceftriaxone for presumed community-acquired pneumonia likely secondary to gram-positive or gram-negative organisms. Will restart the patient's home meds as appropriate. Possible DC tomorrow if patient continues to improve.
[2025-06-13] MEDS: RINGERS LACTATED 1000 ML 1,000 ML 999 ML IV (14:14)
[2025-06-13 15:12] LABS: Collection Type, Urine Clean Catch; Squamous Epithelial Cell,Urine 0 /hpf (0-5)
[2025-06-13 15:30] LABS: Bacteria,Urine Rare; Bilirubin,Urine Negative (Negative); Blood,Urine Negative (Negative); Clarity,Urine Clear (Clear/Hazy); Color,Urine Lt-Yellow (Lt Yel-Yel); Glucose, Urine Negative (Negative); Ketones,Urine Negative (Negative); Leukocyte Esterase,Urine Positive (Negative); Nitrite,Urine Negative (Negative); PH,Urine 7.0 (5.0-7.0); Protein,Urine Negative (Neg - Trace); RBC,Urine 7 /hpf (0-3); Specific Gravity,Urine 1.007 (1.001-1.035); Urobilinogen,Urine 2.0 mg/dL (0.0-1.0); WBC,Urine 9 /hpf (0-5)
[2025-06-13] MEDS: NIFEdipine XL 30 MG TABCR PO (17:05)
[2025-06-13] MEDS: HEPARIN SOD INJ 5000 UNIT/ML VIAL SC (20:26)
[2025-06-14] VITALS (9 sets, daily range): BP systolic 108–145; BP diastolic 56–87; PULSE 79–96; RESP 16–22; TEMP 36.4–38.1; O2SAT 90–96
[2025-06-14 05:37] LABS: Basophils # (Auto) 0.0 Thou/mm3 (0.0-0.2); Basophils % (Auto) 0 % (0-2.5); Eosinophils # (Auto) 0.2 Thou/mm3 (0.0-0.5); Eosinophils % (Auto) 2 % (0-10); Hematocrit 36.3 % (36.0-46.0); Hemoglobin 11.9 g/dL (12.0-16.0); Immature Granulocytes Auto 1.20 Thou/mm3 (0.00-0.00); Lymphocytes # (Auto) 1.4 Thou/mm3 (1.0-4.8); Lymphocytes % (Auto) 11 % (10-50); Mean Corpuscular HGB Conc 32.8 g/dl (31.0-37.0); Mean Corpuscular Hemoglobin 31.2 pg (25.0-35.0); Mean Corpuscular Volume 95 fL (80-100); Monocytes # (Auto) 1.6 Thou/mm3 (0.0-0.8); Monocytes % (Auto) 13 % (0-12); Neutrophils # (Auto) 7.8 Thou/mm3 (1.8-7.7); Neutrophils % (Auto) 64 % (37-80); Nucleated Red Blood Cell # 0.00 Thou/mm3 (0.00-0.00); Nucleated Red Blood Cell % 0 /100 WBC (0); Platelet Count 287 Thou/mm3 (140-440); RDW Standard Deviation 46.2 fL (36.4-46.3); Red Blood Count 3.82 Miln/mm3 (4.00-5.20); White Blood Count 12.2 Thou/mm3 (3.6-11.0)
[2025-06-14 06:23] LABS: Alanine Aminotransferase 32 U/L (10-49); Albumin, Serum 3.9 gm/dL (3.4-4.8); Albumin/Globulin Ratio 1.9 (1.2-2.2); Anion Gap 9 (7-16); Aspartate Amino Transferase 41 U/L (0-34); BUN/Creatinine Ratio 8 Ratio (12-20); Bilirubin,Total 0.4 mg/dL (0.3-1.2); Blood Urea Nitrogen 5 mg/dL (9-23); Calcium 9.5 mg/dL (8.3-10.6); Calcium (Corrected) 9.6 mg/dL (8.5-10.1); Carbon Dioxide 27.6 mMol/L (20.0-31.0); Chloride 102 mMol/L (98-107); Creatinine (Component) 0.6 mg/dL (0.6-1.3); Estimated Creatinine Clearance 56.7 mL/min (>60); Globulin 2.1 gm/dL (2.3-3.5); Glucose 106 mg/dL (74-106); Magnesium 1.5 mg/dL (1.6-2.6); Osmolality,Calculated 274 (275-295); Phosphorous 2.8 mg/dL (2.4-5.1); Potassium 3.8 mMol/L (3.4-5.1); Sodium 139 mMol/L (136-145); Total Protein 6.0 gm/dL (5.7-8.2); eGFR > 60 See Note
[2025-06-14 06:54] LABS: Alkaline Phosphatase 105 U/L (46-116)
[2025-06-14 09:02] LABS: Procalcitonin 1.10 ng/ml (0.0-0.49)
[2025-06-14] MEDS: HEPARIN SOD INJ 5000 UNIT/ML VIAL SC ×2 (09:11→20:49)
[2025-06-14] MEDS: cefTRIAXone/D5w 1gm IV premix 1 GM/50 ML BAG IV (09:11)
--- NOTE | 2025-06-14 09:30 | PC.SS ---
VALVE PIPE IRRIGATOR conducted bedside contact with the patient conduct initial assessment and to discuss discharge planning.? Patient confirmed demographic information.? Patient resides alone at home. ?Patient does not utilize any form of DME to assist with ambulation.? Patient does not utilize home oxygen.? Currently on 3L nasal cannula.? Patient describes the ability to complete ADL?s independently.? Patient identified sister, Dennise Garcia ; as medical surrogate decision maker.? Patient?s PCP is Dr. Nelson.? Patient does not participate with dialysis.? Patient does not possess any specialty providers.? Plan is for the patient to return home at the time of discharge.? Friend, Marina; will provide transportation on behalf of the patient.? If home oxygen required, no preferred vendor identified.? No further discharge needs identified by the patient.? No further intervention required at this time, social work lecturer will be available to address any further concerns.? Next of Kin: Dennise Garcia D/C Plan: Home
[2025-06-14] MEDS: AZITHROMYCIN INJ 500 MG in SODIUM CHLORIDE 0.9% 250 ML 250 ML 250 MG IV (10:15)
[2025-06-14] MEDS: Magnesium Sulfate 2 GM Ivpb 2 GM/50 ML BAG IV (12:45)
--- NOTE | 2025-06-14 13:51 | ESPR_ITS ---
Documentation for date of: 06/14/25 Subjective Subjective Interval history: Patient seen this morning, no chills or sweating. Cough improved. No chest pain, abdominal pain, nausea, vomiting, or diarrhea. Frequent urination overnight but no dysuria. Complains mainly about hospital bed discomfort. Attempted to wean patient off of oxygen; sats dropped to 88?89%; stable at 92?94% on 3 L NC. States she feels better overall today. Exam Vital Signs Temp Pulse Resp BP Pulse Ox O2 Del Method O2 Flow Rate 98.5 F 96 16 145/69 H 92 L Room Air 3 06/14/25 08:00 06/14/25 10:55 06/14/25 10:55 06/14/25 09:11 06/14/25 10:55 06/14/25 08:00 06/14/25 10:55 Narrative Exam General: Appears tired, mild respiratory distress improving. HEENT: Mucous membranes slightly dry. Neck: Supple, no JVD. Heart: Regular rate, regular rhythm. No murmurs. Lungs: Decreased breath sounds at left base. No crackles. + wheezes on left lung. Abdomen: Soft, mild diffuse tenderness, no guarding. Extremities: No edema. Pulses intact. Neuro: Alert, oriented x3, no focal deficits. Skin: Warm, dry. Objective Labs 06/15/25 04:23 06/15/25 04:23 Labs: Laboratory Results - last 24 hr 06/13/25 06/14/25 15:02 04:29 WBC 12.2 H RBC 3.82 L Hgb 11.9 L Hct 36.3 MCV 95 MCH 31.2 MCHC 32.8 RDW Std Deviation 46.2 Plt Count 287 D Neut % (Auto) 64 Lymph % (Auto) 11 Wheeler % (Auto) 13 H Eos % (Auto) 2 Baso % (Auto) 0 Neut # (Auto) 7.8 H Lymph # (Auto) 1.4 Wheeler # (Auto) 1.6 H Eos # (Auto) 0.2 Baso # (Auto) 0.0 Immature Gran # (Auto) 1.20 H Absolute Nucleated RBC 0.00 Immature Gran % 10 H Nucleated RBC % 0 Sodium 139 Potassium 3.8 D Chloride 102 Carbon Dioxide 27.6 Anion Gap 9 BUN 5 L Creatinine 0.6 Estim Creat Clear Calc 56.7 L eGFR > 60 BUN/Creatinine Ratio 8 L Glucose 106 Calculated Osmolality 274 L Calcium 9.5 Corrected Calcium 9.6 Phosphorus 2.8 Magnesium 1.5 L Total Bilirubin 0.4 AST 41 H ALT 32 Alkaline Phosphatase 105 D Total Protein 6.0 Albumin 3.9 D Globulin 2.1 L Albumin/Globulin Ratio 1.9 Procalcitonin 1.10 H Ur Collection Type Clean Catch Urine Color Lt-Yellow Urine Clarity Clear Urine pH 7.0 Ur Specific [place] 1.007 Urine Protein Negative Urine Glucose (UA) Negative Urine Ketones Negative Urine Blood Negative Urine Nitrite Negative Urine Bilirubin Negative Urine Urobilinogen (Auto) 2.0 Ur Leukocyte Esterase Positive Urine RBC 7 H Urine WBC 9 H Ur Squamous Epith Cells 0 Urine Bacteria Rare Quality Measures Quality Measures sepsis Current suspected stage: ruled out Possible source: pulmonary Blood cultures ordered: completed in ED Antibiotic ordered: Yes Advance care planning discussed with:: patient and sibling Assessment & Plan Assessment Current Active Medications: Generic Name Dose Route Start Last Admin Trade Name Freq PRN Reason Stop Dose Admin Acetaminophen 650 mg 06/13/25 15:18 06/13/25 19:24 Acetaminophen 325 Mg Tablet PO 07/13/25 15:17 650 mg Q6H PRN Administration Fever >100.4 or pain Albuterol/Ipratropium 3 ml 06/13/25 16:23 Albuterol/Ipratropium (Duoneb) Rt Brittani 3 Ml Nebu INH 07/13/25 18:59 Q6HRRT PRN wheezing Heparin Sodium (Porcine) 5,000 unit 06/13/25 21:00 06/14/25 09:11 Heparin Sod Inj 5000 Unit/Ml Vial SC 06/27/25 20:59 5,000 unit Q12HR MONTEZ Administration Azithromycin 500 mg/ Sodium 250 mls @ 250 mls/hr 06/14/25 09:00 06/14/25 10:15 Chloride IV 06/21/25 08:59 250 mls/hr QDAY MONTEZ Administration Ceftriaxone Sodium/Dextrose 1 gm in 50 mls @ 100 mls/hr 06/14/25 09:00 06/14/25 09:11 Rocephin/D5w 1gm Iv Premix IV 06/21/25 08:59 100 mls/hr QDAY MONTEZ Administration Lisinopril 10 mg 06/14/25 09:00 06/14/25 09:11 Lisinopril 2.5 Mg Tablet PO 07/14/25 08:59 10 mg QDAY MONTEZ Administration Ondansetron HCl 4 mg 06/13/25 15:18 Ondansetron Inj 2 Mg/Ml Inj 2 Ml IVP 07/13/25 15:17 Q6H PRN NAUSEA OR VOMITING Protocol Pantoprazole Sodium 40 mg 06/15/25 09:00 Pantoprazole 40 Mg Tablet PO 07/15/25 08:59 QDAY MONTEZ Paroxetine HCl 20 mg 06/14/25 09:00 06/14/25 09:19 Paroxetine Hcl 10 Mg Tablet PO 07/14/25 08:59 20 mg QDAY MONTEZ Administration Sodium Chloride 3 ml 06/13/25 16:34 Sodium Chloride Rt Brittani 0.9% 3 Ml Nebu INH 07/13/25 16:33 PRN PRN SOLN Plan 85-year-old female with HTN/HLD admitted for acute hypoxic respiratory failure due to left basilar pneumonia, with improving leukocytosis and procalcitonin, persistent oxygen requirement, low-grade fevers, and overall clinical improvement. #Acute hypoxic respiratory failure #Left Basilar Pneumonia, suspected community-acquired, possibly travel-related #Leukocytosis # Low-grade fever, expected with pneumonia patient presents with fever, cough, dyspnea CXR: left basilar infiltrate Initial SpO2 91% on room air -> improved to 95% WBC 16.8, procal 1.89 Recent cruise and long flight, possible risk for atypicals. 06/14: Persistent oxygen requirement; failed weaning trial; cough improving. Downtrending WBC and procalcitonin suggest treatment response. Plan: * Start ceftriaxone + azithromycin (06/13- ) * Start Duoneb Q6H as needed for wheezing. * Blood cultures pending * Sputum culture if she produces * Consider atypical testing only if clinical status worsens (Legionella, Mycoplasma). * Consider viral panel * Incentive spirometry * Trend WBC * Maintain O2 > 92% #Hypokalemia, resolved Potassium this morning 3.8. Plan: * Repeat BMP in AM #Tachycardia, resolved Likely fever, dehydration and pneumonia-related. Plan: * Treat infection * IV fluids #Hypertension / HLD Home meds: lisinopril 10 mg, paroxetine 20 mg, omeprazole 20 mg, atorvastatin 10 mg 3x/week Plan: * Continue home meds Health Maintenance: Disposition: Inpatient admission for acute hypoxic resp failure Feeding: Regular diet Thromboprophylaxis: Heparin SQ Q12H GI Prophylaxis: Pantoprazole 40 mg IV daily. Code Status: DNR. ----- Plan discussed with attending physician Dr. Zully Olivas MD PGY-1 Internal Medicine Attending Provider Attestation/Addendum I have examined the patient, reviewed labs and imaging findings, discussed the case with the resident(s), and reviewed entered orders. I agree with the plan of care as outlined in this note, with these additional summaries/recommendations: Patient seen at bedside. No acute overnight events. Patient reports minimal improvement in shortness of breath. Patient admitted for acute hypoxic respiratory failure secondary to community-acquired pneumonia. Continue IV antibiotics. Blood culture showed no growth preliminarily at 24 hours. Continue to wean supplemental oxygen as tolerated. Leukocytosis improving although not resolved. Mild hypomagnesia and replacement given. Patient updated on the plan and agreement. All questions answered to satisfaction. Please see residents note for additional details and management. Dr. Zully MD
[2025-06-15] VITALS (8 sets, daily range): BP systolic 109–157; BP diastolic 59–84; PULSE 70–91; RESP 16–20; TEMP 36.2–36.9; O2SAT 92–96
[2025-06-15 05:45] LABS: Basophils # (Auto) 0.0 Thou/mm3 (0.0-0.2); Basophils % (Auto) 0 % (0-2.5); Eosinophils # (Auto) 0.2 Thou/mm3 (0.0-0.5); Eosinophils % (Auto) 2 % (0-10); Hematocrit 33.7 % (36.0-46.0); Hemoglobin 11.0 g/dL (12.0-16.0); Immature Granulocytes Auto 1.56 Thou/mm3 (0.00-0.00); Lymphocytes # (Auto) 2.0 Thou/mm3 (1.0-4.8); Lymphocytes % (Auto) 16 % (10-50); Mean Corpuscular HGB Conc 32.6 g/dl (31.0-37.0); Mean Corpuscular Hemoglobin 31.3 pg (25.0-35.0); Mean Corpuscular Volume 96 fL (80-100); Monocytes # (Auto) 1.9 Thou/mm3 (0.0-0.8); Monocytes % (Auto) 15 % (0-12); Neutrophils # (Auto) 7.1 Thou/mm3 (1.8-7.7); Neutrophils % (Auto) 56 % (37-80); Nucleated Red Blood Cell # 0.00 Thou/mm3 (0.00-0.00); Nucleated Red Blood Cell % 0 /100 WBC (0); Platelet Count 303 Thou/mm3 (140-440); RDW Standard Deviation 46.5 fL (36.4-46.3); Red Blood Count 3.52 Miln/mm3 (4.00-5.20); White Blood Count 12.8 Thou/mm3 (3.6-11.0)
[2025-06-15 06:19] LABS: Alanine Aminotransferase 50 U/L (10-49); Albumin, Serum 3.8 gm/dL (3.4-4.8); Albumin/Globulin Ratio 1.8 (1.2-2.2); Alkaline Phosphatase 92 U/L (46-116); Anion Gap 11 (7-16); Aspartate Amino Transferase 59 U/L (0-34); BUN/Creatinine Ratio 12 Ratio (12-20); Bilirubin,Total 0.3 mg/dL (0.3-1.2); Blood Urea Nitrogen 7 mg/dL (9-23); Calcium 8.6 mg/dL (8.3-10.6); Calcium (Corrected) 8.8 mg/dL (8.5-10.1); Carbon Dioxide 26.7 mMol/L (20.0-31.0); Chloride 99 mMol/L (98-107); Creatinine (Component) 0.6 mg/dL (0.6-1.3); Estimated Creatinine Clearance 56.7 mL/min (>60); Globulin 2.1 gm/dL (2.3-3.5); Glucose 127 mg/dL (74-106); Magnesium 2.0 mg/dL (1.6-2.6); Osmolality,Calculated 273 (275-295); Phosphorous 3.0 mg/dL (2.4-5.1); Potassium 3.7 mMol/L (3.4-5.1); Sodium 137 mMol/L (136-145); Total Protein 5.9 gm/dL (5.7-8.2); eGFR > 60 See Note
--- NOTE | 2025-06-15 07:34 | CHAP ---
Patient was visited by a Spiritual Care Volunteer on 06/14/2025 between 0900 and 1200 and received comfort, encouragement and/or prayer.
--- NOTE | 2025-06-15 07:49 | CHAP ---
Patient was visited by a Spiritual Care Volunteer on 06/14/2025 between 1530 and 1850 and received comfort, encouragement and/or prayer. Patient also received a blessing on infant and family.
[2025-06-15] MEDS: cefTRIAXone/D5w 1gm IV premix 1 GM/50 ML BAG IV (08:45)
[2025-06-15] MEDS: HEPARIN SOD INJ 5000 UNIT/ML VIAL SC (08:45)
[2025-06-15] MEDS: PANTOPRAZOLE 40 MG TABLET PO (08:45)
[2025-06-15] MEDS: AZITHROMYCIN INJ 500 MG in SODIUM CHLORIDE 0.9% 250 ML 250 ML 250 MG IV (09:36)
--- NOTE | 2025-06-15 10:02 | PC.SS ---
rounding note: Physician team attempted to wean patient off 02. Patient remains on 3L . SS will speak with floor nurse to document 02 sats.
--- NOTE | 2025-06-15 10:55 | PC.NURSE ---
pt's O2 sats are 85% on Room Air at rest
--- NOTE | 2025-06-15 13:25 | ESDS_ITS ---
Planned Discharge Date 06/15/25 DS: Providers Provider Date of admission: 06/15/25 08:41 Primary care physician: Gisele Nelson MD Admitting Provider: Bj Amanda DO Attending Provider on Admission: Luan Andrea MD Consults: 06/15/25 12:27 PT [Referral Physical Therapy] Stat Comment: Physician Instructions: Instructions: need eval before dc today please and thank you Attending Provider on DC: Luan Andrea MD Discharging Provider: David Olivas MD DS: Diagnosis Problem List Completed Was Problem List Reviewed/Reconciled?: Yes Hospital Course Hospital Course Hospital course: 85 year old female with past medical history of HTN was admitted for acute hypoxic respiratory failure due to left basilar pneumonia. She was febrile upon admission, tachycardic, and hypoxic with WBC of 16.8. IV antibiotics (ceftriaxone and azithromycin) were started promptly. Blood cultures were negative after 48 hours, and influenza was ruled out. Procalcitonin improved from 1.89 to 1.1, and WBC trended down to 12.8 by discharge. Hemoglobin decreased from 12.9 to 11, likely non-acute in nature. The patient was on 3 L of nasal cannula for supplemental oxygen and showed mild improvement in respiratory status. She was unable to wean off oxygen without saturation dropping to 88-89%. No need for Duoneb therapy. Throughout her hospitalization, she remained stable, with no fever or new complications. She tolerated oral intake, had adequate urine output, and had no signs of gastrointestinal bleeding. Diagnosis during admission: #Acute hypoxic respiratory failure #Left Basilar Pneumonia, suspected community-acquired, possibly travel-related #Leukocytosis # Low-grade fever, expected with pneumonia #Hypokalemia, resolved #Tachycardia, resolved #Hypertension / HLD Discharge instructions: -Follow-up with PCP within 1 week of discharge. If you do not have appointment, please follow-up with the [facility] with Dr. Marrero. Call [phone] to make an appointment. -Recommended to take Augmentin twice daily for 4 more days -Start taking Losartan 50mg and stop lisinopril -Take Guaifenesin as needed for cough -Continue rest of the home medications -Use oxygen as needed and recommended pulse oximeter monitoring at home, Maintain saturations >90 -Return to ED if symptoms persist or return ----- Plan discussed with attending physician Dr. Zully Olivas MD PGY-1 Internal Medicine Time Spent with Patient Time attestation: Total time spent providing and/or coordinating discharge services: Time spent: Greater than 30 minutes Exam Vital Signs Temp Pulse Resp BP Pulse Ox O2 Del Method O2 Flow Rate 97.8 F 85 16 157/79 H 93 L Nasal Cannula 2 06/15/25 11:42 06/15/25 11:42 06/15/25 11:42 06/15/25 11:42 06/15/25 11:42 06/15/25 11:42 06/15/25 11:42 Narrative Exam General: Sitting eating breakfast well, no resp distress. HEENT: Mucous membranes slightly dry. Neck: Supple, no JVD. Heart: Regular rate, regular rhythm. No murmurs. Lungs: regular breath sounds. No crackles. no wheezes. Abdomen: Soft, no tenderness, no guarding. Extremities: No edema. Pulses intact. Neuro: Alert, oriented x3, no focal deficits. Skin: Warm, dry. Discharge Plan Plan Patient Disposition: HOME (Self Care) Patient condition on transfer: Stable Care Plan Goals: -Follow-up with PCP within 1 week of discharge. If you do not have appointment, please follow-up with the [facility] with Dr. Marrero. Call [phone] to make an appointment. -Recommended to take Augmentin twice daily for 4 more days -Start taking Losartan 50mg and stop lisinopril -Take Guaifenesin as needed for cough -Continue rest of the home medications -Use oxygen as needed and recommended pulse oximeter monitoring at home, [facility] saturations >90 -Return to ED if symptoms persist or return Prescriptions/Referrals Prescriptions/Med Rec: New losartan 50 mg tablet 50 mg PO QDAY Qty: 30 1RF amoxicillin-pot clavulanate 875-125 mg tablet 1 tab PO Q12H Qty: 8 0RF guaifenesin 100 mg/5 mL liquid 200 mg PO Q4H PRN (Reason: congestion) Qty: 473 0RF Continued atorvastatin 10 mg Tablet 10 mg PO MWF paroxetine HCl 20 mg Tablet 20 mg PO QDAY raloxifene 60 mg Tablet 60 mg PO QDAY omeprazole 20 mg Tablet,Delayed Release (Dr/Ec) 20 mg PO QDAY Discontinued lisinopril 5 mg tablet 5 mg PO QDAY Qty: 30 0RF Rx Instructions: Begin 5 mg nightly if BP greater than 160/90. Referrals: Gisele Nelson MD [Primary Care Provider, Nephrology] Patient/Caregiver Discharge Instructions Education Materials: What Is Pneumonia?, Treating Pneumonia, When You Have Pneumonia Print Language: Nam[place]ian Stand Alone Forms: [employer] Award Info., Patient Portal Info Letter Discharge Order Discharge Orders: Discharge (Routine); Ordered 06/15/25 Ordered By: Moreno Marrero Quality Discharge Quality Measures VTE prophylaxis MD Attestestation MD Attestation I have examined the patient, reviewed labs and imaging findings, discussed the case with the resident(s), and reviewed entered orders. I agree with the plan of care as outlined in this note. Dr. Zully MD
--- NOTE | 2025-06-15 15:58 | PC.SS ---
Patient needs new home 02. SS submitted through [employer]. [facility] will deliver new 02 within an hour.D/c for today
[2025-06-15 16:28] LABS: Path Review Blood Smear Sent to Pathologist
--- NOTE | 2025-06-15 17:46 | PC.PT ---
PT eval only. Patient is xI with bed mobility, transfers, and ambulation with no AD. Patient is safe to ambulate to the bathroom xI and in the halls with 1 staff assist for O2 line management. RN made aware.
== END 2025-06-15 17:40 | disposition home or self-care (01) | DRG 193 ==
LOC: SERX 12:15 → SERHOLD 15:56 → S3SX 06-14 08:15
PROVIDERS: Admitting Provider Student in an Organized Health Care Education/Training Program; Emergency Provider Emergency Medicine; PCP Internal Medicine; Visit Provider Student in an Organized Health Care Education/Training Program
DX: J18.9 Pneumonia, unspecified organism (principal); J96.01 Acute respiratory failure with hypoxia; E87.6 Hypokalemia; I10 Essential (primary) hypertension; E83.42 Hypomagnesemia; R00.0 Tachycardia, unspecified; E86.0 Dehydration; E78.5 Hyperlipidemia, unspecified; F41.9 Anxiety disorder, unspecified; K21.9 Gastro-esophageal reflux disease without esophagitis; Z66 Do not resuscitate; Z87.891 Personal history of nicotine dependence; Z88.1 Allergy status to other antibiotic agents; Z79.899 Other long term (current) drug therapy
CPT/HCPCS: 36415; 71045; 80053; 81001; 83605; 83735; 83880; 84100; 84145; 84484; 85025; 85610; 85730; 87040; 87086; 87502; 87635; 93005; 94664; 96365; 96366; 96375; 97161; 99285; G0378; J0456; J0696; J1644; J2470; J3475; J7050; J7120; A9270